=== PATIENT | male | born 1985 | race Caucasian/White ===

== ENCOUNTER 2019-01-07 19:49 | Emergency (ER) | payer OTHER ==
[~2019-01-07] VITALS: Ht 170.2 cm; Wt 88.0 kg
[2019-01-07] MEDS ORDERED: VITAMIN C60 MG (19:57)
[2019-01-07] MEDS ORDERED: ZYRTEC10 M3 (19:57)
== END 2019-01-07 22:31 | disposition home or self-care (01) ==
LOC: ER 19:49
DX: R31.0 Gross hematuria (principal)

== ENCOUNTER 2019-02-27 21:26 | Emergency (ER) | payer OTHER ==
[~2019-02-27] VITALS: Ht 170.2 cm; Wt 86.2 kg
[~2019-02-27 21:26] MED LIST: VITAMIN C60 MG; ZYRTEC10 M3
[2019-02-28] MEDS ORDERED: INTESTINEX680 M1 PO (02:31)
[2019-02-28] MEDS ORDERED: LEVSIN/SL0.125 MG SL (02:31)
== END 2019-02-28 02:52 | disposition home or self-care (01) ==
LOC: ER 21:26
DX: R10.13 Epigastric pain (principal); R19.7 Diarrhea, unspecified